=== PATIENT | male | born 1980 | race Caucasian/White ===

== ENCOUNTER 2020-10-01 17:55 | Emergency (ER) | payer OTHER ==
[2020-10-01] MEDS ORDERED: GLUCOPHAGE1000 MG PO (19:10)
[2020-10-01 20:11] VITALS: BP 109/79
== END 2020-10-01 20:18 | disposition home or self-care (01) ==
LOC: ED 17:55
DX: R51.9 Headache, unspecified (principal); M54.2 Cervicalgia; E11.9 Type 2 diabetes mellitus without complications; Z79.84 Long term (current) use of oral hypoglycemic drugs; V89.2XXA Person injured in unspecified motor-vehicle accident, traffic, initial encounter

== ENCOUNTER 2023-01-02 20:37 | Emergency (ER) | payer BC ==
[~2023-01-02] VITALS: Ht 167.6 cm; Wt 61.4 kg
[~2023-01-02 20:37] MED LIST: GLUCOPHAGE1000 MG PO
[2023-01-02] MEDS ORDERED: TRULICITY3 MG/0.5 M SQ (20:53)
[2023-01-02] MEDS ORDERED: METFORMIN HYDR750 MG PO (20:54)
[2023-01-02 21:41] LABS: BASO # 0.02 K/mm3 (0.02-0.10); EOS # 0.12 K/mm3 (0.04-0.40); EOS % 2.3 % (0.0-4.0); HEMOGLOBIN 13.1 g/dL (13.5-18.0); LYMPH# 1.98 K/mm3 (1.50-4.00); MEAN CELL VOLUME 84 fl (78-100); MEAN CORPUSCULAR HEMOGLOBIN 28 pg (27-31); MEAN CORPUSCULAR HGB CONC 34 g/dL (33-37); MEAN PLATELET VOLUME 9.3 fl (7.4-10.4); MONO # 0.32 K/mm3 (0.20-0.80); NEU # 2.85 K/mm3 (1.40-6.50); PLATELET COUNT 229 K/mm3 (130-400); RED BLOOD COUNT 4.63 M/mm3 (4.20-5.60); WHITE BLOOD COUNT 5.3 K/mm3 (4.8-10.8)
[2023-01-02 21:56] LABS: POTASSIUM 4.2 mmol/L (3.5-5.1)
[2023-01-02 21:57] LABS: CALCIUM 9.2 mg/dL (8.3-10.5)
[2023-01-02 21:58] LABS: TOTAL PROTEIN 6.4 g/dL (6.4-8.3)
[2023-01-02 22:00] LABS: TOTAL BILIRUBIN 0.4 mg/dL (0.2-1.2)
[2023-01-02 22:01] LABS: URINE WBC 0 /hpf (0-3)
[2023-01-02 22:08] LABS: URINE COLOR YELLOW
[2023-01-02 22:09] LABS: URINE APPEARANCE CLEAR; URINE BILIRUBIN NEGATIVE (NEGATIVE); URINE BLOOD NEGATIVE (NEGATIVE); URINE KETONE NEGATIVE (NEGATIVE); URINE LEUKOCYTE ESTERASE NEGATIVE (NEGATIVE); URINE NITRATE NEGATIVE (NEGATIVE); URINE PROTEIN(semi-quant) NEGATIVE (NEGATIVE); URINE UROBILINOGEN NORMAL (NORMAL)
[2023-01-03] MEDS ORDERED: METFORMIN HCL500 M2 PO (00:16)
[2023-01-03 00:45] VITALS: BP 105/65
== END 2023-01-03 00:45 | disposition home or self-care (01) ==
LOC: ED 20:37
PROVIDERS: Physician Assistant
DX: E11.65 Type 2 diabetes mellitus with hyperglycemia (principal); Z79.85 Long-term (current) use of injectable non-insulin antidiabetic drugs
CPT/HCPCS: J1815; J7030